=== PATIENT | female | born 1960 | race Asian ===

== ENCOUNTER 2016-12-10 14:35 | Inpatient (IN) | payer BC ==
[~2016-12-10 14:35] MED LIST: MINOCYCLINE HCL50 M2 PO; TARCEVA PO; VITAMIN D32000 UNI3 PO; [UNRECOGNIZED DRUG - REMARK]
[2016-12-10] MEDS ORDERED: CORTEF10 M1 PO (16:28)
[2016-12-10] MEDS ORDERED: CHEMO (16:29)
[2016-12-10 16:33] LABS: TSH-THYROID STIMULATING HORM. 4.33 uIU/ml (0.40-3.80)
[2016-12-10 21:06] LABS: URINE BILIRUBIN NEGATIVE (NEG); URINE BLOOD NEGATIVE (NEG); URINE GLUCOSE (UA) NEGATIVE (NEG); URINE KETONE NEGATIVE (NEG); URINE LEUKOCYTE ESTERASE NEGATIVE (NEG); URINE NITRITE NEGATIVE (NEG); URINE PROTEIN NEGATIVE (NEG); URINE SPECIFIC GRAVITY 1.005 (1.003-1.030)
[2016-12-10 21:22] LABS: URINE APPEARANCE CLEAR; URINE COLOR PALE YELLOW; URINE EPITHELIAL CELLS 0 /[HPF] (0-10); URINE RBC 0 /[HPF] (0-5); URINE WBC 0 /[HPF] (0-5)
[2016-12-11 03:47] LABS: BASO % 0.2 % (0-2); HCT-HEMATOCRIT 34.4 % (34.0-49.0); HGB-HEMOGLOBIN 11.2 gm/dl (12.0-15.5); IMMATURE GRANULOCYTES ABSOLUTE 0.01 tho/cmm (0-0.03); IMMATURE GRANULOCYTES PERCENT 0.2 % (0-0.3); LYMPH % 23.4 % (20-45); LYMPH ABSOLUTE COUNT 1.1 tho/cmm (0.8-4.5); MCHC MEAN CORPUSCULAR HGB CONC 32.6 % (32.0-36.0); MCV (MEAN CELL VOLUME) 98.3 fl (82.0-96.0); MEAN PLATELET VOLUME 9.3 cmc (9.4-12.4); MONO % 0.4 % (0-12); NEUTROPHIL ABSOLUTE COUNT 3.5 tho/cmm (1.6-8.0); NEUTROPHIL-AUTOMATED 3.5 tho/cmm (1.6-8.0); NEUTROPHILS % 75.8 % (40-80); PLATELET COUNT 175 tho/cmm (150-450); RED CELL DISTRIBUTION WIDTH 13.3 % (12.4-16.4); WHITE BLOOD COUNT 4.6 tho/cmm (4.0-10.0)
[2016-12-11 04:10] LABS: ALB/GLOB RATIO 0.9 (0.8-2.0); ALBUMIN 3.1 g/dl (3.5-5.0); ALKALINE PHOSPHATASE 90 U/L (33-138); ALT/SGPT 139 U/L (12-78); ANION GAP 10 mmol/L (0-20); AST/SGOT 134 U/L (10-40); BILIRUBIN,TOTAL 0.2 mg/dl (0-1.5); BLOOD UREA NITROGEN 7 mg/dl (6-24); CALCIUM 8.3 mg/dl (8.5-10.5); CARBON DIOXIDE-VENOUS 29 mmol/L (22-32); CHLORIDE 106 mmol/l (96-110); CREATININE 0.48 mg/dl (0.50-1.10); GLUCOSE 143 mg/dL (70-110); POTASSIUM 3.8 mmol/L (3.7-5.1); SODIUM 141 mmol/L (135-145); eGFR VALUE FOR BLACK >90 mL/Min
[2016-12-11 04:51] LABS: CKMB 130.5 ng/ml (<3.6)
[2016-12-11 17:09] LABS: T4 (THYROXINE) 1.4 ug/dl (5.0-12.6)
[2016-12-12 05:37] LABS: HGB-HEMOGLOBIN 10.8 gm/dl (12.0-15.5); PLATELET COUNT 186 tho/cmm (150-450)
[2016-12-12 06:05] LABS: CREATINE PHOSPHOKINASE (CPK) 772 U/L (21-215)
[2016-12-12 06:06] LABS: CKMB 69.4 ng/ml (<3.6)
[2016-12-13 06:29] LABS: CREATINE PHOSPHOKINASE (CPK) 664 U/L (21-215)
[2016-12-13 06:35] LABS: TSH-THYROID STIMULATING HORM. 7.03 uIU/ml (0.40-3.80)
[2016-12-13 07:00] LABS: CKMB 69.3 ng/ml (<3.6); T4 (THYROXINE) 3.3 ug/dl (5.0-12.6)
[2016-12-14 05:43] LABS: PLATELET COUNT 179 tho/cmm (150-450)
[2016-12-14 05:58] LABS: CREATINE PHOSPHOKINASE (CPK) 624 U/L (21-215)
[2016-12-14] MEDS ORDERED: COREG3.125 M1 PO (13:19)
[2016-12-14] MEDS ORDERED: POTASSIUM CHLO20 ME4 PO (13:20)
[2016-12-14] MEDS ORDERED: SYNTHROID100 MC1 PO (13:20)
[2016-12-14] MEDS ORDERED: PREDNISONE50 M1 PO (13:22)
[2016-12-14] MEDS ORDERED: PRILOSEC OTC20 M1 PO (13:24)
== END 2016-12-14 14:19 | DRG 181 ==
LOC: 5WF 14:35
PROVIDERS: Internal Medicine Hematology & Oncology; ADMIT Internal Medicine Medical Oncology
DX: C34.92 Malignant neoplasm of unspecified part of left bronchus or lung (principal); M62.82 Rhabdomyolysis; C79.31 Secondary malignant neoplasm of brain; C79.51 Secondary malignant neoplasm of bone; C79.70 Secondary malignant neoplasm of unspecified adrenal gland; E27.40 Unspecified adrenocortical insufficiency; E05.90 Thyrotoxicosis, unspecified without thyrotoxic crisis or storm; T45.1X5A Adverse effect of antineoplastic and immunosuppressive drugs, initial encounter; R13.10 Dysphagia, unspecified; R79.89 Other specified abnormal findings of blood chemistry; E03.9 Hypothyroidism, unspecified; R06.82 Tachypnea, not elsewhere classified; R00.0 Tachycardia, unspecified; R91.1 Solitary pulmonary nodule; R74.8 Abnormal levels of other serum enzymes
CPT/HCPCS: J1650; J7030; J7512

== ENCOUNTER 2016-12-26 02:00 | Emergency (ER) | payer BC ==
[~2016-12-26 02:00] MED LIST changes: +CHEMO; +COREG3.125 M1 PO; +CORTEF10 M1 PO; +POTASSIUM CHLO20 ME4 PO; +PREDNISONE50 M1 PO; +PRILOSEC OTC20 M1 PO; +SYNTHROID100 MC1 PO
[2016-12-26 02:47] LABS: BASO % 0.2 % (0-2); EOS % 0.5 % (0-7); EOSINOPHIL ABSOLUTE COUNT 0.1 tho/cmm (0.0-0.7); HCT-HEMATOCRIT 44.6 % (34.0-49.0); HGB-HEMOGLOBIN 15.2 gm/dl (12.0-15.5); IMMATURE GRANULOCYTES ABSOLUTE 0.03 tho/cmm (0-0.03); IMMATURE GRANULOCYTES PERCENT 0.3 % (0-0.3); LYMPH % 34.4 % (20-45); LYMPH ABSOLUTE COUNT 3.7 tho/cmm (0.8-4.5); MCH (MEAN CORPUSCULAR HGB) 32.8 pg (28.0-32.0); MCHC MEAN CORPUSCULAR HGB CONC 34.1 % (32.0-36.0); MCV (MEAN CELL VOLUME) 96.3 fl (82.0-96.0); MEAN PLATELET VOLUME 9.7 cmc (9.4-12.4); MONO % 5.8 % (0-12); MONOCYTE ABSOLUTE COUNT 0.6 tho/cmm (0.0-1.2); NEUTROPHIL ABSOLUTE COUNT 6.4 tho/cmm (1.6-8.0); NEUTROPHIL-AUTOMATED 6.4 tho/cmm (1.6-8.0); NEUTROPHILS % 58.8 % (40-80); PLATELET COUNT 251 tho/cmm (150-450); RED BLOOD COUNT 4.63 mil/cmm (4.00-5.20); RED CELL DISTRIBUTION WIDTH 13.7 % (12.4-16.4); WHITE BLOOD COUNT 10.8 tho/cmm (4.0-10.0)
[2016-12-26 03:02] LABS: ALBUMIN 3.7 g/dl (3.5-5.0); ALKALINE PHOSPHATASE 101 U/L (33-138); ALT/SGPT 131 U/L (12-78); BILIRUBIN,TOTAL 0.4 mg/dl (0-1.5); BLOOD UREA NITROGEN 13 mg/dl (6-24); CALCIUM 9.1 mg/dl (8.5-10.5); CARBON DIOXIDE-VENOUS 28 mmol/L (22-32); CHLORIDE 102 mmol/l (96-110); CREATININE 0.66 mg/dl (0.50-1.10); GLUCOSE 134 mg/dL (70-110); SODIUM 138 mmol/L (135-145); eGFR VALUE FOR BLACK >90 mL/Min
[2016-12-26 03:09] LABS: ANION GAP 12 mmol/L (0-20); AST/SGOT 113 U/L (10-40); MAGNESIUM 2.2 mg/dl (1.3-2.6); POTASSIUM 4.3 mmol/L (3.7-5.1)
[2016-12-26 04:04] LABS: T4 (THYROXINE) 11.3 ug/dl (5.0-12.6)
[2016-12-26 04:07] LABS: TSH-THYROID STIMULATING HORM. 1.35 uIU/ml (0.40-3.80)
== END 2016-12-26 09:40 ==
LOC: EDMED 02:00
PROVIDERS: Emergency Medicine
DX: I47.1 Supraventricular tachycardia (principal); C34.90 Malignant neoplasm of unspecified part of unspecified bronchus or lung; R79.89 Other specified abnormal findings of blood chemistry; E03.9 Hypothyroidism, unspecified; Z79.899 Other long term (current) drug therapy; Z79.890 Hormone replacement therapy
CPT/HCPCS: J0153; J7030